=== PATIENT | female | born 1945 | race Caucasian/White ===

== ENCOUNTER 2022-11-16 09:32 | Emergency (ER) | payer MEDICARE ==
[2022-11-16] MEDS ORDERED: Nitroglycerin 0.4 MG Tab.SL SL PRN (10:09)
[2022-11-16] MEDS ORDERED: Aspirin 81 MG Tab.Chew PO ONE (10:09)
[2022-11-16] MEDS ORDERED: Sodium Chloride 0.9% 10 ML Syringe FLUSH PRN ×2 (10:09→11:17)
[2022-11-16] MEDS ORDERED: Sodium Chloride 0.9% 1,000 ML IV SCH (10:15)
[2022-11-16] MEDS ORDERED: Ondansetron 4 MG/2 ML SDV IVPUSH ONE (10:44)
[2022-11-16] MEDS: Morphine 4 MG/ML Syringe IVPUSH PRN ×3 (10:51→11:54)
[2022-11-16 10:55] LABS: ESTIMATED GFR 77 mL/min (>60); TROPONIN I HIGH SENSITIVITY 19.9 pg/mL (<=60.3)
[2022-11-16] MEDS ORDERED: Iopamidol 755 Mg/ML 100 ML Bottle IV SCH (11:30)
[2022-11-16] MEDS ORDERED: Sodium Chloride 0.9% 100 ML IV SCH (11:30)
== END 2022-11-16 14:05 | disposition home or self-care (01) ==
LOC: JP.ED 09:32
DX: I71.010 Dissection of ascending aorta (principal); I10 Essential (primary) hypertension; Z79.899 Other long term (current) drug therapy; Z87.891 Personal history of nicotine dependence
CPT/HCPCS: 36415; 71045; 71045-26; 71275; 71275-26; 80053; 83605; 84484; 85025; 85379; 93005; 93010; 96361; 96374; 96375; 99283; 99285-25; A9270-GY; J2270; J2405; J3490; J7030; Q9967